=== PATIENT | male | born 1995 | race Asian ===

== ENCOUNTER 2017-11-03 16:01 | Emergency (ER) | payer OTHER ==
[2017-11-03 16:18] VITALS: BP 118/80
--- NOTE | 2017-11-03 17:04 | RAD ---
HISTORY: Left-sided chest pain COMPARISONS: None VIEWS: 4: Frontal dual-energy and lateral views of the chest. FINDINGS: CARDIOMEDIASTINAL SILHOUETTE: The cardiomediastinal silhouette is normal. BATOOL: The batool are normal. PLEURA: The costophrenic angles are sharp. No pleural abnormalities are noted. LUNG PARENCHYMA: There is confluent alveolar opacification of the right upper lobe. There is post surgical change to the left upper lung. ABDOMEN: The upper abdomen is clear. There is no subphrenic gas. BONES AND SOFT TISSUES: No bone or soft tissue abnormalities are noted. OTHER: None. IMPRESSION: RIGHT UPPER LOBE CONSOLIDATION. RECOMMEND FOLLOW-UP UNTIL RESOLUTION TO EXCLUDE UNDERLYING PULMONARY PARENCHYMAL PATHOLOGY.
--- NOTE | 2017-11-03 17:19 | UC ---
Respiratory Complaint HPI - HPI Summary HPI Summary: This patient reported having upper respiratory symptoms approximately 2 weeks ago and seems to be eating better had sudden onset of left lower lung pain and is concerned about a pneumothorax S his father has has 2 spontaneous pneumothoraxes in the past denies shortness of breath denies fevers denies cough - History of Current Complaint Chief Complaint: UCRespiratory Stated Complaint: LUNG COMPLAINT Time Seen by Provider: 11/03/17 16:26 Hx Obtained From: Patient Onset/Duration: Sudden Onset Timing: Constant Severity Initially: Mild Severity Currently: Mild Pain Intensity: 3 Pain Scale Used: 0-10 Numeric Character: Cough: Nonproductive Aggravating Factors: Nothing Alleviating Factors: Nothing Associated Signs And Symptoms: Positive: Pleuritic Chest Pain, URI - Allergies/Home Medications Allergies/Adverse Reactions: Allergies Allergy/AdvReac Type Severity Reaction Status Date / Time No Known Allergies Allergy Verified 11/03/17 16:18 Home Medications: Home Medications Dm/PE/Acetaminophen/Doxylamine [Vicks Nyquil Severe Cold 5-6.25-10-325 mg] 1 tab PO 11/03/17 [History] Ibuprofen 200 mg PO 11/03/17 [History] PMH/Surg Hx/FS Hx/Imm Hx Previously Healthy: Yes - Surgical History Surgical History: Yes Surgery Procedure, Year, and Place: wege procedure for pneumothorax-done in [place] 2014 - Family History Family History: Father had spontaneous pneumothorax - Social History Occupation: Student Lives: With Family Alcohol Use: Weekly Substance Use Type: None Smoking Status (MU): Never Smoked Tobacco Type: eCigarettes Review of Systems Constitutional: Fatigue Skin: Negative Eyes: Negative ENT: Negative Respiratory: Cough Cardiovascular: Chest Pain - Base of left lung Gastrointestinal: Negative Genitourinary: Negative Motor: Negative Neurovascular: Negative Musculoskeletal: Negative Neurological: Negative Psychological: Negative Is Patient Immunocompromised?: No All Other Systems Reviewed And Are Negative: Yes Physical Exam Triage Information Reviewed: Yes Appearance: Well-Appearing, No Pain Distress, Well-Nourished Vital Signs: Initial Vital Signs Temp 97.7 F 11/03/17 16:08 Pulse 80 11/03/17 16:08 Resp 18 11/03/17 16:08 BP 118/80 11/03/17 16:08 Pulse Ox 98 11/03/17 16:08 Vital Signs Reviewed: Yes Eye Exam: Normal Eyes: Positive: Conjunctiva Clear ENT Exam: Normal ENT: Positive: Normal ENT inspection, Hearing grossly normal, Pharynx normal, TMs normal, Uvula midline. Negative: Nasal congestion, Tonsillar swelling, Tonsillar exudate, Trismus, Muffled voice, Hoarse voice, Dental tenderness, Sinus tenderness Dental Exam: Normal Neck exam: Normal Neck: Positive: Supple, Nontender, No Lymphadenopathy Respiratory Exam: Normal Respiratory: Positive: Chest non-tender, Lungs clear, Normal breath sounds, No respiratory distress, No accessory muscle use Cardiovascular Exam: Normal Cardiovascular: Positive: RRR, No Murmur, Pulses Normal, Brisk Capillary Refill , Other: - Left-sided lower sided chest with pain is not reproducible with palpation patient states feels more like something is inside Abdominal Exam: Normal Abdomen Description: Positive: Nontender, No Organomegaly, Soft Bowel Sounds: Positive: Present Musculoskeletal Exam: Normal Musculoskeletal: Positive: Strength Intact, ROM Intact, No Edema Neurological Exam: Normal Neurological: Positive: Alert, Muscle Tone Normal Psychological Exam: Normal Psychological: Positive: Age Appropriate Behavior Skin Exam: Normal UC Diagnostic Evaluation - Laboratory O2 Sat by Pulse Oximetry: 98 - Radiology Xray Interpretation: Positive (See Comments) - consolidation in the right upper middle lobe Radiology Interpretation Completed By: ED Physician, Radiologist Respiratory Course/Dx - Course Course Of Treatment: Started on Levaquin 750 mg by mouth daily for 5 days Tylenol ibuprofen increase fluids follow it [facility] next 2-3 days report to emergency department should symptoms worsen in anyway - Differential Dx/Diagnosis Provider Diagnoses: Right middle lobe pneumonia Discharge - Discharge Plan Condition: Stable Disposition: HOME Prescriptions: Levofloxacin TAB* [Levaquin TAB*] 750 mg PO DAILY #4 tab Patient Education Materials: Ibuprofen (By mouth), Pneumonia (ED) Referrals: [facility] [Outside] - 3 Days
[2017-11-03] MEDS ORDERED: Levofloxacin TAB* 500 MG PO ONE (17:20)
[2017-11-03] MEDS ORDERED: Levofloxacin TAB* 250 MG PO ONE (17:22)
== END 2017-11-03 17:36 | disposition home or self-care (01) ==
LOC: UCEAST 16:01
DX: J18.9 Pneumonia, unspecified organism (principal)
CPT/HCPCS: 71046; 99202; A9270-GY; G0463